=== PATIENT | female | born 1995 | race Caucasian/White ===

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

== ENCOUNTER 2017-01-18 19:05 | Emergency (ER) | payer OTHER ==
[~2017-01-18] VITALS: Ht 162.6 cm; Wt 58.1 kg
[~2017-01-18 19:05] MED LIST changes: -BCPILLS PO; -CEPH500C PO; -CETI10TA84 PO; -FLUT0.15 NAE
[2017-01-18 19:11] VITALS: Ht 162.6 cm; Wt 58.1 kg
[2017-01-18] MEDS ORDERED: SODIUM CHLORIDE 0.9% 1000ML 1,000 ML IV STA (19:27)
[2017-01-18] MEDS ORDERED: ACETAMINOPHEN 500 MG TAB PO STA (19:27)
[2017-01-18] MEDS ORDERED: OPTIRAY 320 IV PRN (19:30)
--- NOTE | 2017-01-18 19:36 | EMERGENCY ROOM VISIT NOTE ---
History First contact with patient: 19:13 Chief Complaint: ABDOMINAL PAIN Stated Complaint: STOMACH CRAMPS - PAIN History of Present Illness The patient is a 21 year old female who presents to the Emergency Room with complaints of abdominal pain that started around 8 PM last night. She states the pain is around her bellybutton and her lower abdomen, has been constant, does not radiate, worse with movement, better with rest, at its worst it was 7/ 10, currently she rates as 2/10. She did today she has felt tired and has had chills and a poor appetite. She denies any nausea or vomiting, diarrhea, or urinary symptoms. Her last bowel movement was yesterday and was normal. Today she says she feels like she needs to move her bowels but has been unable to. She tried Tums and Pepto-Bismol for her symptoms without any relief. She denies headache, chest pain, shortness of breath, palpitations, dizziness or syncope, back pain, blood in her stool, rash. Review of Systems A complete 10 point review of systems was reviewed with the patient with pertinent positives and negatives as per history of present illness. All else were negative. Social History Smoking Status: Never Smoker Alcohol Use: none Drug Use: none Marital Status: single Occupation Status: student Current/Historical Medications Scheduled Control Pills ( Control Pills), 1 TAB PO DAILY Scheduled PRN Cetirizine (Zyrtec), 10 MG PO DAILY PRN for Allergy Symptoms Fluticasone Propionate (Nasal) (Flonase Allergy Relief), 2 SPRAYS OSIRIS DAILY PRN for Allergy Symptoms Physical Exam Vital Signs Date Time Temp Pulse Resp B/P (MAP) Pulse Ox O2 Delivery O2 Flow Rate FiO2 01/18/17 21:49 37.4 86 16 113/59 96 Room Air 01/18/17 20:30 37.9 78 16 114/67 100 Room Air 01/18/17 19:11 38.4 95 16 110/66 97 Room Air Physical Exam CONSTITUTIONAL: No acute distress. Well appearing and well nourished. Alert and oriented X 4 with normal affect. HEENT: Normocephalic, atraumatic. Pupils equal, round and reactive to light, EOMI. TMs normal. Pharynx normal. Moist mucous membranes. NECK: Supple, full active range of motion without discomfort. RESPIRATORY: Clear to auscultation bilaterally with no wheezing, crackles, rhonchi or stridor. Equal expansion bilaterally. CARDIOVASCULAR: Regular rate and rhythm with no murmurs, rubs or gallops. Normal peripheral perfusion. No edema. GASTROINTESTINAL: Moderately tenderness in the periumbilical, suprapubic, and right lower quadrant abdomen. Slight guarding. Negative rebound tenderness, negative Rovsing, positive psoas. Soft, nondistended. Bowel sounds present and hypoactive in all quadrants. MUSCULOSKELETAL: Full range of motion of all joints without discomfort. INTEGUMENTARY: No rash or other significant dermatologic conditions noted. Flushed face. NEUROLOGIC: Cranial nerves II-XII grossly intact. No focal neurologic deficits noted. Medical Decision & Procedures ER Provider Diagnostic Interpretation: ULTRASOUND OF THE APPENDIX CLINICAL HISTORY: Right lower quadrant abdominal pain. COMPARISON STUDY: No priors. FINDINGS: Real-time, grayscale, and color flow sonography of the right lower quadrant was performed to assess for acute appendicitis. The appendix is identified in the right lower quadrant. This is top normal in caliber measuring up to 6 mm. The appendix was difficult to compress during the examination. No inflammatory change is seen and no free fluid is identified. No lymphadenopathy was seen. IMPRESSION: The appendix is identified there are quadrant. The appendix is top normal in caliber and was difficult to compress during the examination. Acute appendicitis is not excluded. Surgical consultation is advised. ----- CT SCAN OF THE ABDOMEN AND PELVIS WITH IV CONTRAST CLINICAL HISTORY: Generalized abdominal pain. COMPARISON STUDY: Ultrasound of the right lower quadrant dated 01/18/2017. TECHNIQUE: Following the IV administration of 94 cc of Optiray 320, CT scan of the abdomen and pelvis is performed from the lung bases to the proximal femora. Images are reviewed in the axial, sagittal, and coronal planes. IV contrast was administered without complication. Automated dose control exposure was utilized. A dose lowering technique was utilized adhering to the principles of ALARA. The examination is degraded by a paucity of intraperitoneal fat. CT DOSE: 248.13 mGy.cm FINDINGS: Lung bases: The heart is normal in size and without pericardial effusion. The lung bases are clear. Liver: The contrast-enhanced liver is normal in size, contour, and attenuation. There is no intrahepatic biliary ductal dilatation. The hepatic veins and portal veins are patent. Gallbladder: Unremarkable. Spleen: Normal in size and attenuation. Pancreas: Unremarkable. Adrenal glands: Unremarkable. Kidneys: The contrast enhanced kidneys are normal in size and without hydronephrosis. The kidneys enhance symmetrically. Abdominal vasculature: The abdominal aorta is normal in course and caliber. Bowel: The small bowel and colon are normal in course and caliber. The appendix is difficult to visualize. Imaged portions of the appendix are normal in appearance. Peritoneum: There is no intraperitoneal free air or abdominal ascites. A naval piercing is noted. Lymphadenopathy: None. Pelvic viscera: The bladder is decompressed and not well evaluated. Uterus and adnexa are normal as visualized. There are bilateral ovarian follicles. A small volume of free fluid is seen in the cul-de-sac. Skeletal structures: No lytic or blastic lesions are seen. IMPRESSION: 1. There are no acute infectious or inflammatory findings identified in the abdomen or pelvis. 2. Although difficult to visualize, the imaged portions of the appendix appear normal. If the patient clinically worsens consider short-term follow-up CT of the pelvis only for reassessment. 3. A small volume of free fluid in the cul-de-sac is likely within physiologic limits. Laboratory Results 01/18/17 19:40 Red Blood Count 4.61, Mean Corpuscular Volume 89.2, Mean Corpuscular Hemoglobin 30.2, Mean Corpuscular Hemoglobin Concent 33.8, Mean Platelet Volume 9.3, Neutrophils (%) (Auto) 88.1, Lymphocytes (%) (Auto) 6.7, Monocytes (%) (Auto) 5.0, Eosinophils (%) (Auto) 0.0, Basophils (%) (Auto) 0.1, Neutrophils # (Auto) 6.57, Lymphocytes # (Auto) 0.50, Monocytes # (Auto) 0.37, Eosinophils # (Auto) 0.00, Basophils # (Auto) 0.01 01/18/17 19:40 Test 01/18/17 19:40 White Blood Count 7.46 K/uL (4.8-10.8) Red Blood Count 4.61 M/uL (4.2-5.4) Hemoglobin 13.9 g/dL (12.0-16.0) Hematocrit 41.1 % (37-47) Mean Corpuscular Volume 89.2 fL (80-100) Mean Corpuscular Hemoglobin 30.2 pg (25-34) Mean Corpuscular Hemoglobin Concent 33.8 g/dl (32-36) Platelet Count 224 K/uL (130-400) Mean Platelet Volume 9.3 fL (7.4-10.4) Neutrophils (%) (Auto) 88.1 % Lymphocytes (%) (Auto) 6.7 % Monocytes (%) (Auto) 5.0 % Eosinophils (%) (Auto) 0.0 % Basophils (%) (Auto) 0.1 % Neutrophils # (Auto) 6.57 K/uL (1.4-6.5) Lymphocytes # (Auto) 0.50 K/uL (1.2-3.4) Monocytes # (Auto) 0.37 K/uL (0.11-0.59) Eosinophils # (Auto) 0.00 K/uL (0-0.5) Basophils # (Auto) 0.01 K/uL (0-0.2) RDW Standard Deviation 41.6 fL (36.4-46.3) RDW Coefficient of Variation 12.8 % (11.5-14.5) Immature Granulocyte % (Auto) 0.1 % Immature Granulocyte # (Auto) 0.01 K/uL (0.00-0.02) Urine Color YELLOW Urine Appearance CLEAR (CLEAR) Urine pH 5.0 (4.5-7.5) Urine Specific [place] 1.023 (1.000-1.030) Urine Protein NEG (NEG) Urine Glucose (UA) NEG (NEG) Urine Ketones 1+ (NEG) Urine Occult Blood TRACE (NEG) Urine Nitrite NEG (NEG) Urine Bilirubin NEG (NEG) Urine Urobilinogen NEG (NEG) Urine Leukocyte Esterase MODERATE (NEG) Urine WBC (Auto) 10-30 /hpf (0-5) Urine RBC (Auto) 0-4 /hpf (0-4) Urine Hyaline Casts (Auto) 1-5 /lpf (0-5) Urine Epithelial Cells (Auto) 10-20 /lpf (0-5) Urine Bacteria (Auto) NEG (NEG) Urine Test NEG (NEG) Anion Gap 6.0 mmol/L (3-11) Est Creatinine Clear Calc Drug Dose 82.3 ml/min Estimated GFR () 100.6 Estimated GFR (Non- 86.8 BUN/Creatinine Ratio 13.2 (10-20) Calcium Level 9.4 mg/dl (8.5-10.1) Total Bilirubin 1.3 mg/dl (0.2-1) Direct Bilirubin 0.3 mg/dl (0-0.2) Aspartate Amino Transf (AST/SGOT) 16 U/L (15-37) Alanine Aminotransferase (ALT/SGPT) 25 U/L (12-78) Alkaline Phosphatase 48 U/L (45-117) Total Protein 7.1 gm/dl (6.4-8.2) Albumin 3.9 gm/dl (3.4-5.0) Lipase 150 U/L (73-393) Medications Administered Medications (Trade) Dose Ordered Sig/Coreen Route Start Time Stop Time Status Last Admin Dose Admin Acetaminophen (Tylenol Tab) 1,000 mg NOW STAT PO 01/18/17 19:27 01/18/17 19:29 DC 01/18/17 19:57 1,000 MG Sodium Chloride 1,000 ml @ 999 mls/hr Q1H1M STAT IV 01/18/17 19:27 01/18/17 20:27 DC 01/18/17 19:57 999 MLS/HR Morphine Sulfate (MoRPHine SULFATE INJ) 4 mg NOW STAT IV 01/18/17 20:37 01/18/17 20:38 DC 01/18/17 20:45 4 MG Medical Decision CC: Patient presenting with complaint of abdominal pain Interpretation of Labs: No leukocytosis, no anemia, no significant joint abnormalities, normal renal function, normal liver enzymes and lipase. Moderate esterase with large WBCs in urine, but no bacteria. Urine culture pending. Differential Diagnosis: Includes, but not limited to gastroenteritis, appendicitis, mesenteric adenitis, UTI, pyelonephritis, viral illness, among others. Medication Reconciliation: I attest that I have personally reviewed the patient' s current medication list. Vital signs review: I reviewed the patient's vital signs and interpret them as follows: T: Febrile; BP: Normotensive; HR: Mild tachycardia; RR: Within normal limits; Pulse Ox: Within normal limits on room air. Blood pressure screening: The patient was found to have normal blood pressure on screening and does not require follow-up for repeat blood pressure check. Summary: Patient was evaluated at bedside, history of physical exam performed. Patient is alert and in no acute distress, nontoxic-appearing, resting comfortably in the stretcher. Patient is noted to be febrile and mildly tachycardic. Patient is moderately tender in the periumbilical abdomen extending into the suprapubic and right lower quadrant. Exam findings in setting of fever concerning for possible appendicitis. Orders were placed at bedside for labs, UA, IV fluids for hydration, Tylenol for fever, ultrasound and CT abdomen/pelvis to evaluate for appendicitis. Patient discussed with Dr. Almanzar, who agrees with my assessment and plan. Labs reviewed as above, relatively unremarkable. Urinalysis shows signs of possible infection, cultures pending for confirmation. Ultrasound results reviewed, concerning for possible acute appendicitis but unable to fully confirm this. Will proceed with CT. Patient also complaining of increased pain after ultrasound study, morphine ordered for her pain. CT results reviewed, no evidence of acute appendicitis, though the appendix is not fully visualized, what is visualized does appear normal. No apparent inflammatory changes. Urinalysis consistent with a possible UTI, in setting of suprapubic tenderness and fevers, will treat for this. IV Rocephin given in ER and we'll send patient home on Keflex. Patient reassessed multiple times throughout ED stay, she reports improved pain after medications and IV fluids. Patient was updated on all results and plan for discharge home on antibiotics to treat for UTI. Patient was also instructed on return precautions should her symptoms persist or worsen in any way and that she should return to the ER for further evaluation if this should occur. Patient verbalized understanding. Patient discharged home in stable condition. Impression Primary Impression: Abdominal pain Additional Impressions: Urinary tract infection Fever Departure Information Dispostion Home / Self-Care Condition GOOD Prescriptions Cephalexin Monohydrate (Keflex) 500 Mg Cap 500 MG PO TID for 7 Days, #21 CAP Prov: Antoinette Morris CRNP 01/18/17 Referrals Jesus Braga DO (PCP) Patient Instructions ED Abdominal Pain Appendx Poss, ED UTI Cystitis Female, My [facility] Additional Instructions You have been treated in the Emergency Department your Abdominal Pain and UTI. Laboratory results and imaging studies have ruled out any emergent causes for your abdominal pain which would warrant admission or surgery. You have been prescribed Keflex to be taken 3 times a day for 7 days. This is an antibiotic. All antibiotics have the potential to cause diarrhea. Stop this medication and contact a medical provider if you were to develop any significant adverse side effects including: wheezing, shortness of breath, passing out, vomiting, or a diffuse rash. Always take antibiotics as directed and COMPLETE the ENTIRE course regardless of the improvement of your symptoms. For pain control, you can use the following [id number] medicines (if >12 yo): - Regular strength (325mg/tab) Tylenol (acetaminophen) 2 tabs every 4-6 hours as needed. Do not exceed 12 tablets in a 24 hour period. Avoid taking more than 4 grams (4000 mg) of Tylenol per day. This includes any other sources of acetaminophen you may take on a regular basis. - Regular strength (200 mg/tab) Advil (ibuprofen) 1-2 tabs every 4-6 hours as needed. Do not exceed a dose of 3200 mg per day. Drink plenty of water and stay well hydrated. As with any trip to the Emergency Department, you should follow-up with your Primary Care Provider from today's visit. Return to the emergency department if your symptoms persist despite treatment plan outlined above or if the following symptoms occur: Severe worsening pain, increased or persistent fevers, severe nausea/vomiting, low back pain, blood in your stool or urine. Problem Qualifiers Primary Impression: Abdominal pain Abdominal location: periumbilical Qualified Codes: R10.33 - Periumbilical pain Additional Impressions: Urinary tract infection Urinary tract infection type: acute cystitis Hematuria presence: without hematuria Qualified Codes: N30.00 - Acute cystitis without hematuria Fever Fever type: unspecified Qualified Codes: R50.9 - Fever, unspecified
[2017-01-18 19:50] LABS: BASO % 0.1 %; BASO ABS # 0.01 K/uL (0-0.2); COMPLETE YES; HEMATOCRIT 41.1 % (37-47); IG% 0.1 %; LYMPH % 6.7 %; MEAN CELL VOLUME 89.2 fL (80-100); MEAN CORPUSCULAR HEMOGLOBIN 30.2 pg (25-34); MEAN CORPUSCULAR HGB CONC 33.8 g/dl (32-36); MEAN PLATELET VOLUME 9.3 fL (7.4-10.4); NEUT % 88.1 %; PLATELET COUNT 224 K/uL (130-400); RED BLOOD COUNT 4.61 M/uL (4.2-5.4); WHITE BLOOD COUNT 7.46 K/uL (4.8-10.8)
[2017-01-18 20:02] LABS: URINE APPEARANCE CLEAR (CLEAR); URINE BILIRUBIN NEG (NEG); URINE COLOR YELLOW; URINE NITRITE NEG (NEG); URINE SPECIFIC GRAVITY 1.023 (1.000-1.030); UROBILINOGEN NEG (NEG)
[2017-01-18 20:06] LABS: MANUAL MICROSCOPIC REQUIRED? NO; REVIEW REQ? NO
[2017-01-18 20:13] LABS: BUN/CREATININE RATIO 13.2 (10-20); CALCIUM 9.4 mg/dl (8.5-10.1); CREATININE 0.95 mg/dl (0.60-1.20); POTASSIUM 3.7 mmol/L (3.5-5.1)
--- NOTE | 2017-01-18 20:24 | DIAGNOSTIC IMAGING REPORT ---
ULTRASOUND OF THE APPENDIX CLINICAL HISTORY: Right lower quadrant abdominal pain. COMPARISON STUDY: No priors. FINDINGS: Real-time, grayscale, and color flow sonography of the right lower quadrant was performed to assess for acute appendicitis. The appendix is identified in the right lower quadrant. This is top normal in caliber measuring up to 6 mm. The appendix was difficult to compress during the examination. No inflammatory change is seen and no free fluid is identified. No lymphadenopathy was seen. IMPRESSION: The appendix is identified there are quadrant. The appendix is top normal in caliber and was difficult to compress during the examination. Acute appendicitis is not excluded. Surgical consultation is advised. Electronically signed by: Ricardo Garcia M.D. 01/18/2017 8:22 PM Dictated Date/Time: 01/18/2017 8:21 PM
[2017-01-18] MEDS ORDERED: MoRPHine SULFATE 4 MG/ML 1 ML CARP\\VIAL IV STA (20:37)
[2017-01-18 21:49] VITALS: TEMP 37.4
--- NOTE | 2017-01-18 22:13 | DIAGNOSTIC IMAGING REPORT ---
CT SCAN OF THE ABDOMEN AND PELVIS WITH IV CONTRAST CLINICAL HISTORY: Generalized abdominal pain. COMPARISON STUDY: Ultrasound of the right lower quadrant dated 01/18/2017. TECHNIQUE: Following the IV administration of 94 cc of Optiray 320, CT scan of the abdomen and pelvis is performed from the lung bases to the proximal femora. Images are reviewed in the axial, sagittal, and coronal planes. IV contrast was administered without complication. Automated dose control exposure was utilized. A dose lowering technique was utilized adhering to the principles of ALARA. The examination is degraded by a paucity of intraperitoneal fat. CT DOSE: 248.13 mGy.cm FINDINGS: Lung bases: The heart is normal in size and without pericardial effusion. The lung bases are clear. Liver: The contrast-enhanced liver is normal in size, contour, and attenuation. There is no intrahepatic biliary ductal dilatation. The hepatic veins and portal veins are patent. Gallbladder: Unremarkable. Spleen: Normal in size and attenuation. Pancreas: Unremarkable. Adrenal glands: Unremarkable. Kidneys: The contrast enhanced kidneys are normal in size and without hydronephrosis. The kidneys enhance symmetrically. Abdominal vasculature: The abdominal aorta is normal in course and caliber. Bowel: The small bowel and colon are normal in course and caliber. The appendix is difficult to visualize. Imaged portions of the appendix are normal in appearance. Peritoneum: There is no intraperitoneal free air or abdominal ascites. A naval piercing is noted. Lymphadenopathy: None. Pelvic viscera: The bladder is decompressed and not well evaluated. Uterus and adnexa are normal as visualized. There are bilateral ovarian follicles. A small volume of free fluid is seen in the cul-de-sac. Skeletal structures: No lytic or blastic lesions are seen. IMPRESSION: 1. There are no acute infectious or inflammatory findings identified in the abdomen or pelvis. 2. Although difficult to visualize, the imaged portions of the appendix appear normal. If the patient clinically worsens consider short-term follow-up CT of the pelvis only for reassessment. 3. A small volume of free fluid in the cul-de-sac is likely within physiologic limits. Electronically signed by: Ricardo Garcia M.D. 01/18/2017 10:11 PM Dictated Date/Time: 01/18/2017 10:02 PM
[2017-01-18] MEDS ORDERED: CEFTRIAXONE SOD INJ 1 GM ADDVIAL IV STA (22:26)
[2017-01-18] MEDS ORDERED: CEPHALEXIN 500MG HOME PACK 1 EA BTL PO ONE (22:30)
[2017-01-18] MEDS ORDERED: CEPH500C PO (22:35)
[2017-01-18] MEDS ORDERED: CETI10TA84 PO (22:35)
[2017-01-18] MEDS ORDERED: FLUT0.15 NAE (22:35)
[2017-01-18] MEDS ORDERED: BCPILLS PO (22:35)
[2017-01-18] MEDS ORDERED: KETOROLAC TROMETHAMINE 30 MG/ML VIAL IV STA (22:39)
[2017-01-18 23:13] VITALS: BP 112/57; PULSE 62; O2SAT 99
== END 2017-01-18 23:15 | disposition home or self-care (01) ==
LOC: C.EDB 19:06 → C.EDA 23:15
DX: R10.33 Periumbilical pain (principal); N30.00 Acute cystitis without hematuria; R50.9 Fever, unspecified; Z79.3 Long term (current) use of hormonal contraceptives

== ENCOUNTER → 2017-09-05 | Outpatient (CLI) | payer OTHER ==
[~2017-09-05] MED LIST changes: +BCPILLS PO; +CETI10TA84 PO; +FLUT0.15 NAE; -ONDA4TAB10 SL
== END | disposition home or self-care (01) ==
LOC: C.PAPS 15:04
PROVIDERS: ATTEND Obstetrics & Gynecology
DX: Z12.4 Encounter for screening for malignant neoplasm of cervix (principal); R87.612 Low grade squamous intraepithelial lesion on cytologic smear of cervix (LGSIL)

== ENCOUNTER → 2017-09-26 | Outpatient (CLI) | payer OTHER | END | disposition home or self-care (01) | LOC: C.PAPS 15:57 | PROVIDERS: ATTEND Obstetrics & Gynecology | DX: R87.612 Low grade squamous intraepithelial lesion on cytologic smear of cervix (LGSIL) (principal) ==

== ENCOUNTER → 2017-09-26 | Outpatient (CLI) | payer OTHER | END | disposition home or self-care (01) | LOC: C.PATHSPEC 15:42 | PROVIDERS: ATTEND Obstetrics & Gynecology | DX: R87.612 Low grade squamous intraepithelial lesion on cytologic smear of cervix (LGSIL) (principal); N87.1 Moderate cervical dysplasia ==

== ENCOUNTER 2019-05-29 20:32 | Observation (INO) ==
[2019-05-29] MEDS ORDERED: ONDANSETRON INJ 2 MG/ML 2 ML VIAL IV PRN (21:02)
[2019-05-29] MEDS ORDERED: ONDANSETRON INJ 2 MG/ML 2 ML VIAL ONE (21:08)
[2019-05-29] MEDS: LACTATED RINGER'S 1,000 ML IV PRN ×3 (21:28→23:50)
[2019-05-30] MEDS: LACTATED RINGER'S 1,000 ML IV PRN (00:50)
--- NOTE | 2019-05-30 08:14 | Obstetrical Progress Note ---
Date of Service May 30, 2019 Subjective Outpatient Note 23 F P0000 at 34 weeks with di/di twins seen in L&D for nausea and vomiting of that may be flu related. Father of babies has diarrhea and vomiting currently and was seen in the ER for this. Patient is now feeling much better. Her urine is still dark and concentrated but no nausea or vomiting this AM. No contractions or any abdominal pain. Had BPP for decrease movement which came back 6/8 for twin A and B. Exam with no edema of lower extremities. Abdomen soft and non-tender. Will plan for discharge and to follow up this week in the office. She is instructed to hydrate well and to return if any changes. All questions are answered. Physical Exam Constitutional: WD/WN, vitals as above comfortable Results & Data Vital Signs (Past 12 Hours) Vital Signs Temp Pulse Resp BP 05/30/19 08:02 110 H 116/64 05/30/19 03:46 37.0 C 90 18 124/77 05/29/19 20:46 37.0 C 123 H 18 127/80 05/29/19 20:44 37.1 C 123 H 18 127/80
--- NOTE | 2019-05-30 08:53 | Ultrasound Report ---
US OB BPP wo NST twins CLINICAL HISTORY: non reactive tracing. Evaluate biophysical profile. COMPARISON STUDY: ultrasound April 27, 2019. TECHNIQUE: Transabdominal sonography of the pelvis was performed for evaluation of biophysical profil e. FINDINGS: Please note that a dedicated anatomical survey was not performed. The cervix was not assessed on this exam. Twin intrauterine gestation is noted. Baby A has a normal heart rate of 144 bpm. tone and movement were normal. breathing for baby A was 0 out of 2. Largest pock et was 6.9 cm. Baby B has normal heart rate of 148 bpm. tone and movement were both normal. Breathing was 0 of 2. Largest pocket was 6.5 cm. IMPRESSION: 1. Twin intrauterine gestation. 2. Biophysical profile of 6 out of 8 for Baby A. breathing 0 of 2. 3. Biophysical profile of 6 out of 8 for Baby B. breathing 0 of 2. ACT 112: Negative or not required by law. Electronically signed by: Trent Mcbride M.D. 05/30/2019 8:51 AM
== END 2019-05-30 08:40 | disposition home or self-care (01) ==
LOC: 4S1 20:32 → OPB 20:32 → 4S1 20:34

== ENCOUNTER 2019-06-21 04:25 | Inpatient (IN) ==
[2019-06-21] MEDS ORDERED: OXYTOCIN 30 UNITS/500 ML BAG IV PRN (05:12)
[2019-06-21 05:46] LABS: Hematocrit (blood only) 37.3 % (37-47); Hemoglobin 12.9 g/dL (12.0-16.0); Mean Corpuscular Hemoglobin 31.3 pg (25-34); Mean Corpuscular Volume 90.5 fL (80-100); Mean Platelet Volume 11.3 fL (7.4-10.4); Platelet Count 206 K/uL (130-400); RDW Coefficient of Variation 14.1 % (11.5-14.5); RDW Standard Deviation 45.9 fL (36.4-46.3); Red Blood Count 4.12 M/uL (4.2-5.4); White Blood Count 12.85 K/uL (4.8-10.8)
[2019-06-21 05:47] LABS: Mean Corpuscular Hgb Conc 34.6 g/dL (32-36)
[2019-06-21] MEDS: LACTATED RINGER'S 1,000 ML IV PRN ×2 (06:56→07:55)
[2019-06-21] MEDS ORDERED: ePHEDrine sulfate 50 MG/ML AMP ONE (07:05)
[2019-06-21] MEDS ORDERED: fentaNYL citrate 100 MCG/2 ML VIAL ONE (07:05)
[2019-06-21] MEDS ORDERED: BUPIVACAINE 0.25% 30 ML VIAL ONE (07:06)
[2019-06-21] MEDS ORDERED: fentaNYL 2MCG/ML ROPIV 1.25MG/ML 100 ML BAG EPI ONE (07:06)
[2019-06-21] MEDS ORDERED: ePHEDrine sulfate 50 MG/ML AMP IV PRN (08:33)
[2019-06-21] MEDS ORDERED: NALOXONE HCL 1 MG in SODIUM CHLORIDE 0.9% 1000ML 1,000 ML IV PRN (08:33)
[2019-06-21] MEDS ORDERED: NALBUPHINE HCL INJ 10 MG/ML AMP IV PRN (08:33)
[2019-06-21] MEDS ORDERED: NALOXONE HCL 0.4 MG/1 ML VIAL/CARP IV PRN (08:33)
[2019-06-21] MEDS ORDERED: fentaNYL 2MCG/ML ROPIV 1.25MG/ML 100 ML BAG EPI PRN (08:33)
[2019-06-21] MEDS ORDERED: ONDANSETRON INJ 2 MG/ML 2 ML VIAL IV PRN ×2 (08:33→16:20)
[2019-06-21] MEDS ORDERED: DiphenhydrAMINE HCL 50 MG/ML VIAL IV PRN (08:33)
--- NOTE | 2019-06-21 08:33 | Anesthesiology Consultation ---
Date of Service June 21, 2019 Assessment & Plan Chart Review Chart Review: Patient NOT seen in Pre Admission Testing and Acceptable Risk for Labor Epidural Consults Requested none ASA ASA2 Proposed Anesthesia Anesthesia Type: Labor Epidural Risk / Benefits Reviewed With: PT / POA / Parent / Guardian, Accepts Plan and Informed Consent Obtained History Height/Weight Height: 5 ft 4 in Weight: 82.1 kg Allergies Allergy/AdvReac Type Severity Reaction Status Date / Time nickel Allergy Rash Verified 06/21/19 05:15 Medications Home Medications Medication Instructions Recorded Confirmed Last Taken vit no.[id number] 1 tab PO DAILY 05/12/19 06/21/19 06/20/19 20:00 [ Vitamin] Active Medications Generic Name Dose Route Start Last Admin Trade Name Freq PRN Reason Stop Dose Admin Lactated Ringer's 1,000 mls @ 125 mls/hr 06/21/19 05:12 06/21/19 07:55 Lr IV 06/23/19 05:11 125 mls/hr .Q8H PRN Administration L&D Protocol Protocol NPO Date Last Intake of Fluids: 06/21/19 Time Last Intake of Fluids: 07:00 Date Last Intake of Solids: 06/20/19 Time Last Intake of Solids: 19:00 Past Medical History Medical History No pertinent past medical history Exercise / Class Metabolic Activity II 4-5 Yardwork/Stairs/Walk up hill Past Family History Family History Other No pertinent family history in first degree relatives Past Surgical History Surgical History [place] teeth removed Past Anesthesia History No Hx of Anesthesia Complications and No Family Hx of Anesthesia Complications History of PONV No Hx of PONV and No Hx of Motion Sickness Social History Smoking Status: Never smoker Hx Alcohol Use: No Hx Substance Use: No substance use type: does not use Physical Exam Vital Signs Last Vital Signs Temp 36.9 C 06/21/19 07:15 Pulse 77 06/21/19 08:30 Resp 18 06/21/19 07:15 BP 121/66 06/21/19 08:30 Pulse Ox 98 06/21/19 08:26 ENMT Mouth: no dentition abnormality Thyromental Distance: > or= 3.5 Finger Breadths Mallampati Class: II Neck normal visual inspection Respiratory normal respiratory effort Auscultation: lungs clear to auscultation bilaterally Cardiovascular Rate/Rhythm: regular rate and regular rhythm Psychiatric Orientation: alert Testing Laboratory Results 06/21/19 05:29
[2019-06-21] MEDS: OXYTOCIN 30 UNITS/500 ML BAG IV PRN ×2 (12:54→14:21)
[2019-06-21] MEDS ORDERED: METHYLERGONOVINE MALEATE 0.2 MG/ML AMP ONE (13:25)
[2019-06-21] MEDS ORDERED: LIDOCAINE/EPINEPHRINE 1% 20 ML VIAL ONE (13:40)
[2019-06-21] MEDS ORDERED: PROPOFOL IV EMULSION 10 MG/ML 20 ML VIAL IV ONE (14:34)
[2019-06-21] MEDS ORDERED: SUCCINYLCHOLINE CHLORIDE 20 MG/ML 10 ML VIAL ONE (14:34)
[2019-06-21] MEDS ORDERED: miSOPROStoL 200 MCG TAB PR ONE ×3 (14:44→17:29)
[2019-06-21] MEDS ORDERED: ACETAMINOPHEN W/CODEINE #3 1 TAB PO PRN (14:55)
[2019-06-21] MEDS ORDERED: SUPERCREAM 0.870% 15 GM JAR EXT PRN (14:55)
[2019-06-21] MEDS ORDERED: bisacodyL 10 MG SUPP PR PRN (14:55)
[2019-06-21] MEDS ORDERED: ACETAMINOPHEN 325 MG TAB PO PRN (14:55)
[2019-06-21] MEDS ORDERED: METHYLERGONOVINE MALEATE 0.2 MG/ML AMP IM ONE (14:55)
[2019-06-21] MEDS ORDERED: DIPHTHERIA/TETANUS/PERTUSSIS 0.5 ML SYR/VIAL IM ONE (14:55)
[2019-06-21] MEDS ORDERED: HYDROCORTISONE ACETATE 25 MG SUPP PR PRN (14:55)
[2019-06-21] MEDS ORDERED: OXYCODONE/ACETAMINOPHEN 5mg/325mg TAB PO PRN (14:55)
[2019-06-21] MEDS ORDERED: BENZOCAINE 20% AER SPR 82.5 GM CAN EXT PRN (14:55)
[2019-06-21] MEDS ORDERED: MEPERIDINE HCL 25 MG/ML CARP ONE (15:17)
[2019-06-21] MEDS ORDERED: LIDOCAINE HCL 2% MPF (LOCAL) 5 ML VIAL INFIL ONE (15:30)
--- NOTE | 2019-06-21 15:36 | Anesthesia Procedure Note ---
Date of Service June 21, 2019 Anesthesia Post Epidural Note Vital Signs Vital Signs: Temp Pulse Resp BP Pulse Ox 36.6 C 89 20 139/92 100 06/21/19 14:06 06/21/19 15:32 06/21/19 14:06 06/21/19 15:26 06/21/19 15:32 Pain Intensity Bilateral Abdomen: Pain Intensity: 6 Notes Mental Status: alert / awake / arousable Nausea / Vomiting: adequately controlled Pain: adequately controlled Airway Patency, RR, SpO2: stable & adequate BP & HR: stable & adequate Hydration State: stable & adequate Neuraxial Anesthesia: was administered and sensory block is resolving Anesthetic Complications: no major complications apparent and Pt Satisfied with anesthetic care Epidural: Removed without complications and With tip intact
--- NOTE | 2019-06-21 15:36 | Anesthesiology Progress Note ---
Date of Service June 21, 2019 Anesthesia Post Procedure Vital Signs Vital Signs: Temp Pulse Resp BP Pulse Ox 06/21/19 15:32 89 100 06/21/19 15:27 83 100 06/21/19 15:26 91 H 139/92 06/21/19 15:23 103 H 91 06/21/19 15:22 106 H 136/86 100 06/21/19 15:17 109 H 205/131 H 100 06/21/19 15:12 110 H 97 06/21/19 14:39 123 H 202/149 H 06/21/19 14:37 94 H 137/74 06/21/19 14:35 96 H 138/77 06/21/19 14:33 96 H 132/74 06/21/19 14:31 99 H 152/73 H 06/21/19 14:29 148/73 H 06/21/19 14:27 90 149/70 H 06/21/19 14:25 107 H 147/75 H 06/21/19 14:23 179 H 144/76 H 06/21/19 14:21 97 H 147/76 H 06/21/19 14:19 100 H 152/68 H 06/21/19 14:17 93 H 149/67 H 06/21/19 14:15 109 H 144/78 H 06/21/19 14:13 105 H 147/67 H 06/21/19 14:11 101 H 149/65 H 06/21/19 14:09 96 H 148/70 H 06/21/19 14:07 108 H 177/77 H 06/21/19 14:06 36.6 C 20 06/21/19 14:05 108 H 144/96 H 06/21/19 14:03 104 H 133/88 06/21/19 14:01 96 H 146/69 H 06/21/19 10:46 138 H 98 06/21/19 10:37 36.9 C 117 H 20 150/85 H 06/21/19 10:36 138 H 98 06/21/19 10:31 114 H 97 06/21/19 10:26 106 H 97 06/21/19 10:21 105 H 141/85 H 97 06/21/19 10:16 104 H 97 06/21/19 10:11 126 H 100 06/21/19 10:07 99 H 143/97 H 01/19/20 10:06 110 H 99 06/21/20 10:04 105 H 93 06/21/20 10:01 97 H 97 06/21/20 09:56 109 H 99 06/21/20 09:51 89 134/95 98 06/21/20 09:46 87 131/91 97 06/21/20 09:42 74 137/91 06/21/20 09:41 87 99 06/21/20 09:36 80 122/68 97 20 09:32 74 124/67 06/21/20 09:31 74 97 06/21/20 09:30 18 06/21/20 09:26 77 122/67 97 06/21/20 09:21 73 118/76 97 06/21/19 09:16 91 H 112/64 98 06/21/19 09:15 16 06/21/19 09:11 78 120/67 99 06/21/20 09:07 80 118/69 06/21/20 09:06 76 98 06/21/19 09:02 78 119/68 06/21/19 09:01 80 99 20 09:00 36.6 C 16 06/21/19 08:56 78 121/76 98 06/21/20 08:51 73 98 06/21/20 08:50 71 121/67 06/21/20 08:48 68 123/74 06/21/20 08:46 75 119/68 98 06/21/20 08:45 16 06/21/20 08:44 76 122/71 06/21/20 08:41 67 119/66 98 06/21/20 08:40 75 118/66 19/20 08:38 73 122/70 19/20 08:36 68 128/69 99 19/20 08:34 70 122/65 19/20 08:32 69 121/66 19/20 08:31 72 99 06/21/20 08:30 77 16 121/66 19/20 08:28 91 H 122/66 06/21/20 08:26 78 129/65 98 19/20 08:24 79 123/62 06/21/20 08:22 84 133/84 20 08:21 89 16 98 01/19/20 08:16 86 98 06/21/19 08:11 91 H 97 06/21/19 08:06 90 97 06/21/19 08:01 89 100 06/21/19 07:56 66 98 06/21/19 07:51 69 98 06/21/19 07:46 81 99 06/21/19 07:41 73 98 06/21/19 07:36 75 99 06/21/19 07:31 76 97 06/21/19 07:26 75 99 06/21/19 07:22 80 130/90 06/21/19 07:21 79 99 06/21/19 07:16 79 99 06/21/19 07:15 36.9 C 18 06/21/19 05:08 86 148/91 H 06/21/19 04:40 36.8 C 18 06/21/19 04:35 76 143/90 H Pain Intensity Bilateral Abdomen: Pain Intensity: 6 Transfer of Care Handoff Completed per policy Notes Mental Status: alert / awake / arousable Patient Amnestic to Procedure: Yes Nausea / Vomiting: adequately controlled Pain: adequately controlled Airway Patency, RR, SpO2: stable & adequate BP & HR: stable & adequate Hydration State: stable & adequate Anesthetic Complications: no major complications apparent
[2019-06-21] MEDS ORDERED: cefOXitin 2,000 MG in DEXTROSE 5% 50 ML IV ONE (15:45)
--- NOTE | 2019-06-21 15:59 | Operative Report ---
DATE OF OPERATION: 06/21/2019 DELIVERY NOTE: The patient is a 1, para 2. She had twins diagnosed early in . They were a result of Clomid. Her blood type is A positive, group B strep negative. She was admitted in spontaneous labor. She has been ultrasounded several times during her and the twins were vertex-vertex and had remained stable. At the time of admission, she had ruptured membranes, which was confirmed on admission and she had active labor. She was about 4 cm on admission. When I got and checked her, she was about 6. She went and had an epidural anesthesia, she went to full dilatation and she was taken to the suite for delivery, pushed out the first , a live male infant. Apgars were good. The rehab director occupational therapist, Dr. Swift who scrubbed and present for the delivery of both of the infants. After the first infant was delivered, cord was clamped and cut and then we immediately checked the position of the second infant, which was vertex by abdominal ultrasound and got a good heart rate tracing. Initially the was very high and we waited for the patient to contract and slowly the head came down. When the head became well applied to the cervix, we ruptured the membranes, fluid was clear and then it took another sizable stretch of time for the infant to come down into the mid pelvis. The fact we had to start low dose IV Pitocin to get a good contraction pattern. She brought the head down around it and we delivered the second infant, which was a female without any difficulty. Cord was cut and clamped. The was attended to by Dr. Swift present for both of the deliveries. Then I tagged each cord separately. We collected blood from each infant. Then I gave her IV Pitocin and IM Methergine. We had difficulty removing the placentas. It was over 30 minutes, probably 40-45 minutes after the delivery of the second infant, we used a lot of massage. We did some traction on the uterus. I had to partially manually freed up and part of the placenta and then 1 placenta, placenta B suddenly delivered intact spontaneously and then placenta A, which was felt to be attached more slowly began to come down. I was able to sweep my finger between the lining of the uterus and the placenta and we eventually delivered the placenta A, although we could not be sure that we had all of the placenta, so we had the patient placed asleep and I did a manual exploration and I removed additional pieces of placenta. Then we continued to do uterine massage. We continued the IV Pitocin. I then added 1000 mcg of rectal Cytotec. We slowly were able to control the bleeding. Estimated blood loss was 600 mL plus. I also had a repair of periurethral laceration on the left side, periurethral laceration on the right side and then a very superficial perineal laceration at 7 o'clock. This was all done with 3-0 chromic. Following this, hemostasis was adequate. The patient was moved to her room. I attest to the content of the Intraoperative Record and any orders documented therein. Any exception s are noted below.
[2019-06-21] MEDS ORDERED: ONDANSETRON INJ 2 MG/ML 2 ML VIAL ONE (16:22)
[2019-06-21] MEDS: IBUPROFEN 600 MG TAB PO PRN ×2 (19:05→23:33)
[2019-06-21] MEDS: DOCUSATE SODIUM 100 MG CAP PO SCH (21:13)
[2019-06-21 22:27] LABS: Hemoglobin 11.4 g/dL (12.0-16.0)
[2019-06-22 06:20] LABS: Hematocrit (blood only) 31.7 % (37-47); Hemoglobin 10.7 g/dL (12.0-16.0); Mean Corpuscular Hemoglobin 30.9 pg (25-34); Mean Corpuscular Hgb Conc 33.8 g/dL (32-36); Mean Corpuscular Volume 91.6 fL (80-100); Mean Platelet Volume 11.3 fL (7.4-10.4); Platelet Count 154 K/uL (130-400); RDW Coefficient of Variation 14.5 % (11.5-14.5); RDW Standard Deviation 47.9 fL (36.4-46.3); Red Blood Count 3.46 M/uL (4.2-5.4)
[2019-06-22] MEDS: IBUPROFEN 600 MG TAB PO PRN ×2 (06:23→11:28)
--- NOTE | 2019-06-22 11:30 | Obstetrical Progress Note ---
Date of Service June 22, 2019 Physical Exam Physical Exam: abdomen soft and non tender vaginal bleeding scant hgb 10.7 no calf tenderness labia are swollen will leave marroquin in place Results & Data Vital Signs (Past 12 Hours) Vital Signs Temp Pulse Resp BP Pulse Ox 06/22/19 03:25 36.7 C 72 16 119/77 95
--- NOTE | 2019-06-22 11:55 | Operative Report ---
DATE OF OPERATION: 06/21/2019 INDICATIONS FOR SURGERY: Heavy bleeding, suspected retained products of conception. PREOPERATIVE DIAGNOSIS: Retained products of conception after delivery of twin . SURGEON: Janeth Thornton MD ESTIMATED BLOOD LOSS: About 300 mL. ANESTHESIA: General. OPERATIVE FINDINGS AND PROCEDURE: After the patient had delivered 2 infants vaginally, we had difficulty removing the placentas. We finally got the second 's placenta to deliver intact. The first one would not spontaneously deliver. The patient was put to sleep. I did a manual removal. I dilated up the cervix manually, got into the uterine cavity, followed the cord to the placenta and then basically removed it and then also swept around the uterine cavity and was able to remove some additional small fragments of placenta. Following this, hemostasis was controlled with a combination of Pitocin, Methergine and rectal Cytotec. The patient tolerated the procedure well. I attest to the content of the Intraoperative Record and any orders documented therein. Any exceptions are noted below. [id number]
[2019-06-22] MEDS: DOCUSATE SODIUM 100 MG CAP PO SCH ×2 (12:59→20:36)
[2019-06-22] MEDS: FERROUS SULFATE 325 MG TAB PO SCH (12:59)
[2019-06-22] MEDS: PRENATAL VITAMIN 1 TAB PO SCH (12:59)
[2019-06-22] MEDS ORDERED: bisacodyL 5 MG TABEC PO SCH (20:00)
[2019-06-23] MEDS: DOCUSATE SODIUM 100 MG CAP PO SCH (07:24)
[2019-06-23] MEDS: PRENATAL VITAMIN 1 TAB PO SCH (07:24)
[2019-06-23] MEDS: IBUPROFEN 600 MG TAB PO PRN (07:24)
[2019-06-23] MEDS: FERROUS SULFATE 325 MG TAB PO SCH (07:25)
[2019-06-23 07:31] LABS: Hematocrit (blood only) 31.7 % (37-47); Hemoglobin 10.6 g/dL (12.0-16.0)
--- NOTE | 2019-06-23 09:02 | Obstetrical Progress Note ---
Date of Service June 23, 2019 Physical Exam Physical Exam: abdomen soft and non tender vaginal bleeding scant hgb 10.6 no calf tenderness ambulating well will discontinue marroquin catheter swelling has decreased Results & Data Vital Signs (Past 12 Hours) Vital Signs Temp Pulse Resp BP 06/22/19 23:50 36.8 C 69 18 133/89
== END 2019-06-23 18:09 | disposition home or self-care (01) | DRG 806 ==
LOC: OPB 04:25 → 4S1 04:28 → 4S2 18:15
PROC: M.EUALD (2019-06-21 14:10)

== ENCOUNTER 2023-04-02 19:08 | Inpatient (IN) ==
[2023-04-02] MEDS ORDERED: OXYTOCIN 30 UNITS/NSS 30 UNITS/500 ML BAG IV PRN (19:37)
[2023-04-02] MEDS ORDERED: LIDOCAINE 1% LOCAL 20 ML VIAL INFIL PRN (19:37)
[2023-04-02] MEDS ORDERED: miSOPROStoL 50 MCG TAB PO ONE (20:09)
[2023-04-02 20:13] LABS: Hematocrit (blood only) 37.6 % (37.0-47.0); Hemoglobin 13.1 g/dl (12.0-16.0); Mean Corpuscular Hemoglobin 31.7 pg (25.0-34.0); Mean Corpuscular Hgb Conc 34.8 g/dL (32.0-36.0); Mean Platelet Volume 11.3 fL (9.4-12.4); Platelet Count 211 K/uL (130-400); RDW Coefficient of Variation 13.1 % (11.5-14.5); Red Blood Count 4.13 M/uL (4.20-5.40); White Blood Count 12.52 K/ul (4.8-10.8)
[2023-04-03] MEDS ORDERED: OXYTOCIN 30 UNITS/NSS 30 UNITS/500 ML BAG IV PRN ×2 (04:45→12:39)
[2023-04-03] MEDS: LACTATED RINGER'S 1,000 ML IV PRN ×2 (05:09→09:15)
[2023-04-03] MEDS ORDERED: LIDOCAINE 2%/EPINEPHRINE 1:200,000 20 ML PF ONE (08:46)
[2023-04-03] MEDS ORDERED: SODIUM CHLORIDE 0.9% PF INJ 10 ML VIAL ONE (08:46)
[2023-04-03] MEDS ORDERED: BUPIVACAINE 0.25% PF 30 ML VIAL ONE (08:46)
[2023-04-03] MEDS ORDERED: ePHEDrine sulfate 50 MG/ML AMP ONE (08:46)
[2023-04-03] MEDS ORDERED: fentaNYL citrate PF 100 MCG/2 ML VIAL ONE (08:46)
[2023-04-03] MEDS ORDERED: fentANYL 2 MCG/ML BUPIVacaine 0.125%-NSS 100ML BAG ONE (08:46)
--- NOTE | 2023-04-03 09:11 | Anesthesiology Consultation ---
Date of Service April 03, 2023 Assessment & Plan Chart Review Chart Review: Patient NOT seen in Pre Admission Testing and Acceptable Risk for Labor Epidural Consults Requested none ASA ASA2 Proposed Anesthesia Anesthesia Type: Labor Epidural Risk / Benefits Reviewed With: PT / POA / Parent / Guardian, Accepts Plan and Informed Consent Obtained History Height/Weight Height: 5 ft 4 in Weight: 86.183 kg Allergies Allergy/AdvReac Type Severity Reaction Status Date / Time nickel Allergy Mild Rash Verified 04/02/23 19:39 Medications Home Medications Medication Instructions Recorded Confirmed Last Taken vit no.95-ferrous 1 tab PO DAILY 03/18/23 04/02/23 04/02/23 08:00 fumarate 28 mg-folic acid 800 mcg tablet () Active Medications Generic Name Dose Route Start Last Admin Trade Name Freq PRN Reason Stop Dose Admin Lactated Ringer's 1,000 mls @ 125 mls/hr 04/02/23 19:37 04/03/23 09:15 Lr IV 04/04/23 19:36 125 mls/hr .Q8H PRN Administration L&D Protocol Protocol Oxytocin 30 units in 500 mls @ 8 mls/hr 04/03/23 04:45 04/03/23 06:57 Pitocin IV 04/05/23 04:44 0.48 units/hr .Q24H PRN 8 mls/hr Labor Induction/Augmentation Titration Protocol 0.48 UNITS/HR NPO Date Last Intake of Fluids: 04/03/23 Time Last Intake of Fluids: 07:00 Date Last Intake of Solids: 04/02/23 Time Last Intake of Solids: 22:00 Past Medical History Medical History History of COVID-19 diagnosed 05/2020--mild symptoms, no symptoms now History of melanoma Scoliosis Exercise / Class Metabolic Activity 1 > 8 Run/Swim/Ski/Tennis Past Family History Family History Other No family history of adverse response to anesthesia No pertinent family history in first degree relatives Past Surgical History Surgical History History of cryosurgery on cervix History of gynecologic surgery removal of retained placenta History of melanoma excision [place] teeth removed Past Anesthesia History No Hx of Anesthesia Complications and No Family Hx of Anesthesia Complications History of PONV No Hx of PONV and No Hx of Motion Sickness Social History Smoking Status: Never smoker Do You Dip or Chew Tobacco: No Hx Alcohol Use: No Hx Substance Use: No substance use type: does not use Review of Systems ROS Unobtainable: All systems reviewed & are unremarkable except as noted in HPI & below Physical Exam Vital Signs Last Vital Signs Temp 36.8 C 04/03/23 08:40 Pulse 76 04/03/23 08:05 Resp 20 04/03/23 07:00 BP 136/84 04/03/23 08:05 Constitutional no acute distress ENMT Mouth: no TMJ abnormality Thyromental Distance: > or= 3.5 Finger Breadths Mallampati Class: II Neck normal visual inspection and trachea midline; neck extension not limited Respiratory normal respiratory effort Auscultation: lungs clear to auscultation bilaterally Cardiovascular Rate/Rhythm: regular rate and regular rhythm Heart Sounds: no murmur Musculoskeletal Spine: normal cervical ROM Extremities: full ROM of extremities Neurologic moves all extremities Psychiatric Orientation: alert and oriented x 3 Testing Laboratory Results 04/02/23 19:47
[2023-04-03] MEDS ORDERED: SODIUM CHLORIDE 0.9% PF INJ 10 ML VIAL EPI STA (09:33)
[2023-04-03] MEDS ORDERED: fentaNYL citrate PF 100 MCG/2 ML VIAL EPI STA (09:33)
[2023-04-03] MEDS ORDERED: BUPIVACAINE 0.25% PF 30 ML VIAL EPI PRN (09:33)
[2023-04-03] MEDS ORDERED: BUPIVACAINE 0.25% PF 30 ML VIAL EPI STA (09:33)
[2023-04-03] MEDS ORDERED: NALOXONE HCL 0.4 MG/1 ML VIAL/CARP IV PRN (09:33)
[2023-04-03] MEDS ORDERED: ROPIVACAINE 0.5% PF 5 MG/ML 20 ML VIAL EPI PRN (09:33)
[2023-04-03] MEDS ORDERED: ePHEDrine sulfate 50 MG/ML AMP IV PRN (09:33)
[2023-04-03] MEDS ORDERED: fentANYL 2 MCG/ML BUPIVacaine 0.125%-NSS 100ML BAG EPI PRN (09:33)
[2023-04-03] MEDS ORDERED: LIDOCAINE 2% MPF LOCAL 5 ML VIAL EPI PRN (09:33)
[2023-04-03] MEDS ORDERED: SODIUM CHLORIDE 0.9% PF INJ 10 ML VIAL EPI PRN (09:33)
[2023-04-03] MEDS ORDERED: NALBUPHINE HCL INJ 10 MG/ML AMP IV PRN (09:33)
[2023-04-03] MEDS ORDERED: NALOXONE HCL 1 MG in SODIUM CHLORIDE 0.9% 1,000 ML IV PRN (09:33)
[2023-04-03] MEDS ORDERED: diphenhydrAMINE 50 MG/ML VIAL IV PRN (09:33)
[2023-04-03] MEDS ORDERED: fentaNYL citrate PF 100 MCG/2 ML VIAL EPI PRN (09:33)
[2023-04-03] MEDS ORDERED: LIDOCAINE 2%/EPINEPHRINE 1:200,000 20 ML PF EPI STA (09:33)
[2023-04-03] MEDS ORDERED: METHYLERGONOVINE MALEATE 0.2 MG/ML AMP ONE (12:16)
[2023-04-03] MEDS ORDERED: ACETAMINOPHEN 325 MG TAB PO PRN (12:39)
[2023-04-03] MEDS ORDERED: METHYLERGONOVINE MALEATE 0.2 MG/ML AMP IM ONE (12:39)
[2023-04-03] MEDS ORDERED: oxyCODONE/ACETAMINOPHEN 5mg/325mg TAB PO PRN (12:39)
[2023-04-03] MEDS ORDERED: DIPHTHERIA/TETANUS/PERTUSSIS Vaccine (Tdap, Age 7+yrs) 0.5mL SYR/VL IM ONE (12:39)
[2023-04-03] MEDS ORDERED: HYDROCORTISONE ACETATE 25 MG SUPP PR PRN (12:39)
[2023-04-03] MEDS ORDERED: BENZOCAINE 20% SPRY 85 APPLN/85 GM CAN EXT PRN (12:39)
[2023-04-03] MEDS ORDERED: ACETAMINOPHEN W/CODEINE #3 1 TAB PO PRN (12:39)
[2023-04-03] MEDS ORDERED: bisacodyL 10 MG SUPP PR PRN (12:39)
--- NOTE | 2023-04-03 12:54 | Delivery Summary ---
Vaginal Delivery Summary Date of Service April 03, 2023 Vaginal Delivery Summary Patient has been followed in my office for care and delivery. Patient has a history of twin vaginal delivery at 37-1/2 weeks gestation. Patient took Femara in order to ovulate and get . She was well dated with an early ultrasound. She was brought in for induction at 41 weeks and 3 days. She was given 1 dose of oral Cytotec. She then had spontaneous contractions for a long time. Contractions started to space out and she was augmented with IV Pitocin. When she was about 4 to 5 cm she received epidural for pain control. Following this membranes were ruptured surgically and light meconium staining was noted. With IV Pitocin running she had regular strong contractions. Went to full dilatation and then about 1 hour pushed out a live female . was delivered without difficulty. Cord was allowed to pulse for 1 full minute. Cord was clamped cut by the father. Cord blood was taken. With IV Pitocin running the placenta was removed intact. There was a midline clitoral laceration which was bleeding profusely. This area was infiltrated with local and then sutured with a running 3-0 chromic with a small needle. Following this inspection of the perineum revealed it to be intact without lacerations. Red rubber Nguyen was used to empty the bladder. Uterus contracted nicely. Estimated blood loss was 100 mL.
[2023-04-03] MEDS ORDERED: ONDANSETRON INJ 2 MG/ML 2 ML VIAL IV PRN (13:27)
[2023-04-03] MEDS ORDERED: ONDANSETRON INJ 2 MG/ML 2 ML VIAL ONE (13:29)
--- NOTE | 2023-04-03 14:30 | Anesthesia Procedure Note ---
Date of Service April 03, 2023 Anesthesia Post Epidural Note Vital Signs Vital Signs: Temp Pulse Resp BP Pulse Ox 36.7 C 72 20 139/73 94 04/03/23 12:55 04/03/23 14:24 04/03/23 14:10 04/03/23 14:24 04/03/23 12:32 Pain Intensity Lower Abdomen: Pain Intensity: 3 Notes Mental Status: alert / awake / arousable and participated in evaluation Nausea / Vomiting: adequately controlled Pain: adequately controlled Airway Patency, RR, SpO2: stable & adequate BP & HR: stable & adequate Hydration State: stable & adequate Neuraxial Anesthesia: was administered and sensory block is resolving Anesthetic Complications: no major complications apparent Epidural: Removed without complications and With tip intact
[2023-04-03] MEDS: IBUPROFEN 600 MG TAB PO PRN ×2 (15:18→20:50)
[2023-04-03] MEDS: DOCUSATE SODIUM 100 MG CAP PO SCH (20:50)
[2023-04-04 06:23] LABS: Hematocrit (blood only) 38.8 % (37.0-47.0); Hemoglobin 13.2 g/dl (12.0-16.0); Mean Corpuscular Hemoglobin 31.9 pg (25.0-34.0); Mean Corpuscular Volume 93.7 fL (80.0-100.0); Mean Platelet Volume 11.1 fL (9.4-12.4); Platelet Count 191 K/uL (130-400); RDW Coefficient of Variation 13.3 % (11.5-14.5); RDW Standard Deviation 45.6 fL (36.4-46.3); Red Blood Count 4.14 M/uL (4.20-5.40); White Blood Count 14.93 K/ul (4.8-10.8)
[2023-04-04] MEDS: DOCUSATE SODIUM 100 MG CAP PO SCH (07:54)
[2023-04-04] MEDS: IBUPROFEN 600 MG TAB PO PRN (07:54)
[2023-04-04] MEDS ORDERED: PRENATAL VITAMIN 1 TAB PO SCH (08:00)
--- NOTE | 2023-04-04 12:57 | Obstetrical Progress Note ---
Date of Service April 04, 2023 Assessment & Plan Admission and Anticipated Discharge Date Admission Date: April 02, 2023 Subjective abdomen soft and non tender no calf tenderness ambulating well vaginal bleeding scant hgb 13.2 Results & Data Vital Signs (Past 12 Hours) Vital Signs Temp Pulse Resp BP Pulse Ox O2 Del Method 04/04/23 07:55 36.7 C 62 16 122/87 99 Room Air 04/04/23 04:50 36.5 C 72 16 122/81 98 Room Air
[2023-04-04] MEDS ORDERED: MEASLES, MUMPS & RUBELLA VIRUS VACCINE (MMR) VIAL SQ ONE (13:02)
[2023-04-04] MEDS ORDERED: bisacodyL 5 MG TABEC PO SCH (20:00)
== END 2023-04-04 14:30 | disposition home or self-care (01) | DRG 768 ==
LOC: 4S1 19:08 → 4E2 04-03 15:40